=== PATIENT | male | born 1980 | race Caucasian/White ===

== ENCOUNTER 2017-02-24 18:24 | Emergency (ER) | payer MEDICAID ==
[2017-02-24 18:32] VITALS: BP 124/78
--- NOTE | 2017-02-24 19:16 | XRAY Preliminary Report ---
Exam: XR Clavicle RT IMPRESSION: 1. Comminuted, displaced distal right clavicle fracture. [facility] SITE ID: [id number]
--- NOTE | 2017-02-24 19:17 | XRAY Preliminary Report ---
Exam: XR Shoulder 3 View RT IMPRESSION: Comminuted, displaced distal clavicle fracture [facility] SITE ID: [id number]
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
--- NOTE | 2017-02-24 19:20 | XRAY Report ---
EXAM: RIGHT SHOULDER RADIOGRAPHY EXAM DATE: 02/24/2017 07:02 PM. CLINICAL HISTORY: Right shoulder injury. COMPARISON: None. TECHNIQUE: 3 views. FINDINGS: Bones: There is a comminuted fracture involving the distal third of the clavicle with elevation of th e proximal fracture fragment up to 15 mm. No other fracture seen. Joints: The glenohumeral and acromioclavicular joints are normal. Soft tissues: The visualized hemithorax is unremarkable. No soft tissue swelling. IMPRESSION: Comminuted, displaced distal clavicle fracture [facility] Referring Provider Line: [phone] SITE ID: [id number]
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
[2017-02-24] MEDS ORDERED: HYDROcod/ACET 5/325 Prepack 6 PO ONE ×2 (19:41→19:57)
[2017-02-24] MEDS ORDERED: ACETAMINOPHEN 325 MG TABLET PO STA (19:41)
[2017-02-24] MEDS ORDERED: IBUPROFEN 600 MG TABLET PO STA (19:41)
[2017-02-24] MEDS ORDERED: IBUPROFEN 600 MG TABLET PO ONE (19:57)
[2017-02-24] MEDS ORDERED: ACETAMINOPHEN 325 MG TABLET PO ONE (19:57)
== END 2017-02-24 20:15 | disposition home or self-care (01) ==
LOC: ED 18:24
DX: S42.031A Displaced fracture of lateral end of right clavicle, initial encounter for closed fracture (principal); V18.4XXA Pedal cycle driver injured in noncollision transport accident in traffic accident, initial encounter; Y93.55 Activity, bike riding; Y92.488 Other paved roadways as the place of occurrence of the external cause; F17.200 Nicotine dependence, unspecified, uncomplicated
CPT/HCPCS: 73000; 73030; 99282; 99283; A9270

== ENCOUNTER 2018-04-10 16:06 | Emergency (ER) | payer MEDICAID ==
--- NOTE | 2018-04-10 16:59 | ED Physician Documentation ---
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 Did not notice the symptoms until he arrived home at night) Similar symptoms before: Has not had sx before Recently seen: Not recently seen Review of Systems Constitutional: denies: Fever, Chills Eyes: denies: Decreased vision, Photophobia Skin: denies: Rash Musculoskeletal: denies: Neck pain, Back pain Neurologic: denies: Headache PD PAST MEDICAL HISTORY - Past Medical History Cardiovascular: None Respiratory: None Neuro: None Endocrine/Autoimmune: None GI: None : None HEENT: None Psych: None Musculoskeletal: None Derm: None - Past Surgical History Past Surgical History: Yes Ortho: Shoulder arthroplasty - Present Medications Home Medications: Ambulatory Orders Medication Instructions Recorded Confirmed Rabeprazole Sodium [Aciphex] 20 mg PO DAILY #20 tablet. 10/18/15 02/24/17 HYDROcod/ACETAM 5/325 [[place] 5/325] 1 tab PO Q6H PRN #15 tablet 02/24/17 Polymyxin B/Trimeth Ophth Drop 1 drops LEFTEYE Q3H 7 Days #1 04/10/18 [Polytrim Ophth Drops] bottle - Allergies Allergies/Adverse Reactions: Allergies Allergy/AdvReac Type Severity Reaction Status Date / Time No Known Drug Allergies Allergy Verified 04/10/18 16:30 - Social History Does the pt smoke?: Yes Smoking Status: Current every day smoker Does the pt drink ETOH?: Yes Does the pt have substance abuse?: No Substance Use and Type: Marijuana - Immunizations Immunizations are current?: Yes - POLST Patient has POLST: No PD ED PE NORMAL - Vitals Vital signs reviewed: Yes - General General: Alert and oriented X 3, No acute distress - HEENT HEENT: Other (Left eye has conjunctival injection, no fluorescein uptake. There is a small fragment of metal embedded in the cornea.) - Derm Derm: Warm and dry - Neuro Neuro: Alert and oriented X 3 Results - Vitals Vitals: Vital Signs - 24 hr 04/10/18 16:24 Temperature 36.2 C L Heart Rate 90 Respiratory 16 Rate Blood Pressure 135/95 H O2 Saturation 96 Oxygen O2 Source Room air PD MEDICAL DECISION MAKING - ED course Complexity details: considered differential, d/w patient ED course: Patient is a 37-year-old male with a left eye foreign body, metal embedded into the cornea. This was removed with an 18-gauge needle. Tolerated well. This wa s done under slit-lamp guidance. We will have him follow-up with ophthalmology for rust ring removal. Will start on Polytrim ophthalmic. Tetanus is up-to-date patient counseled regarding signs and symptoms for which I believe and urgent re-evaluation would be necessary. Patient with good understanding of and agreement to plan and is comfortable going home at this time This document was made in part using voice recognition software. While efforts are made to proofread this document, sound alike and grammatical errors may occur. Patient does not or contacts - Sepsis Event Vital Signs: Vital Signs - 24 hr 04/10/18 16:24 Temperature 36.2 C L Heart Rate 90 Respiratory 16 Rate Blood Pressure 135/95 H O2 Saturation 96 Oxygen O2 Source Room air Departure - Departure Disposition: 01 Home, Self Care Clinical Impression: Corneal foreign body with residual material Qualifiers: Encounter type: initial encounter Laterality: left Qualified Code(s): T15.02XA - Foreign body in cornea, left eye, initial encounter Condition: Good Instructions: ED Foreign Body Cornea W Rust Ring Follow-Up: Gavin Jeronimo MD [Provider Admit Priv/Credential] - Within 3 Days Prescriptions: Polymyxin B/Trimeth Ophth Drop [Polytrim Ophth Drops] 1 drops LEFTEYE Q3H 7 Days #1 bottle Comments: Use the eyedrops as prescribed. Make sure to follow-up with Dr. Jeronimo for further evaluation and removal of the rust ring. Discharge Date/Time: 04/10/18 17:25
[2018-04-10 17:20] VITALS: BP 132/79
== END 2018-04-10 17:25 | disposition home or self-care (01) ==
LOC: ED 16:06
DX: T15.02XA Foreign body in cornea, left eye, initial encounter (principal); X58.XXXA Exposure to other specified factors, initial encounter
CPT/HCPCS: 65222; 99283

== ENCOUNTER 2022-05-26 12:11 | Emergency (ER) | payer MEDICAID ==
[2022-05-26 12:52] VITALS: BP 150/86
--- NOTE | 2022-05-26 13:17 | XRAY Report ---
PROCEDURE: Chest 1 View X-Ray INDICATIONS: cough with SOA TECHNIQUE: One view of the chest was acquired. COMPARISON: None. FINDINGS: Surgical changes and devices: Plate/screw fixation of the right clavicle. Lungs and pleura: No consolidation or pleural effusion. Possible peribronchial cuffing. Mediastinum: Mediastinal contours appear normal. Heart size is normal. Bones and chest wall: Left rib deformity of the eighth rib most notably, probably nonacute. IMPRESSION: No pulmonary consolidation or pleural effusions. Possible peribronchial cuffing could be seen with br onchitis in the setting of cough. Left eighth rib deformity, possibly nonacute. Right clavicle plate/screw fixation hardware. Reviewed by: Jorgito Bacon MD on 05/26/2022 1:16 PM PST Approved by: Jorgito Bacon MD on 05/26/2022 1:16 PM PST Station ID: [id number]
--- NOTE | 2022-05-26 14:29 | ED Physician Documentation ---
PD HPI URI - Stated complaint Stated Complaint: COUGH - Chief complaint Chief Complaint: Resp - History obtained from History obtained from: Patient - History of Present Illness Timing - onset: How many months ago (5) Timing duration: Months (5) Timing details: Gradual onset Pain level max: 0 Pain level now: 0 Associated symptoms: Nasal congestion, Rhinorrhea, Productive cough, Dyspnea. No: Fever, Chest pain Contributing factors: Sick contact Improves by: Rest Worsened by: Activity, Breathing - Additional information Additional information: Patient is a 41-year-old male who presents to the emergency department with a cough for the past 5 months. He is a heavy daily smoker. He states his chest feels tight and has increasing coughing recently. Chills but no documented fevers. No vomiting. The cough is productive clear mucus. 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 Nothing makes it better or worse. Review of Systems Constitutional: denies: Fever GI: denies: Vomiting, Diarrhea Skin: denies: Rash Musculoskeletal: denies: Neck pain, Back pain Neurologic: denies: Headache PD PAST MEDICAL HISTORY - Past Medical History Cardiovascular: None Respiratory: None Neuro: None Endocrine/Autoimmune: None GI: None : None HEENT: None Psych: None Musculoskeletal: None Derm: None - Past Surgical History Past Surgical History: Yes Ortho: Shoulder arthroplasty - Present Medications Home Medications: Ambulatory Orders Medication Instructions Recorded Confirmed Rabeprazole Sodium [Aciphex] 20 mg PO DAILY #20 tablet. 10/18/15 02/24/17 HYDROcod/ACETAM 5/325 [[place] 5/325] 1 tab PO Q6H PRN #15 tablet 02/24/17 Polymyxin B/Trimeth Ophth Drop 1 drops LEFTEYE Q3H 7 Days #1 04/10/18 [Polytrim Ophth Drops] bottle Albuterol Sulf [Ventolin Hfa 1 - 2 puffs INH Q4HR PRN #1 each 05/26/22 Inhaler] Amox/Clav 875/125 [Augmentin] 1 tab PO Q12H #20 tablet 05/26/22 Doxycycline Monohydrate 100 mg PO BID #20 cap 05/26/22 - Allergies Allergies/Adverse Reactions: Allergies Allergy/AdvReac Type Severity Reaction Status Date / Time lactose Allergy Unknown Verified 05/26/22 12:52 - Social History Does the pt smoke?: Yes Smoking Status: Current every day smoker Does the pt drink ETOH?: Yes Does the pt have substance abuse?: No - Immunizations Immunizations are current?: Yes - POLST Patient has POLST: No PD ED PE NORMAL - Vitals Vital signs reviewed: Yes - General General: Alert and oriented X 3, No acute distress, Well developed/nourished - HEENT HEENT: PERRL, Moist mucous membranes - Neck Neck: Supple, no meningeal sign - Cardiac Cardiac: RRR, Strong equal pulses - Respiratory Respiratory: No respiratory distress, Other (mild wheezing B) - Abdomen Abdomen: Soft, Non tender, Non distended - Derm Derm: Warm and dry - Extremities Extremities: No edema, No calf tenderness / cord - Neuro Neuro: Alert and oriented X 3 - Psych Psych: Normal mood, Normal affect Results - Vitals Vitals: Vital Signs - 24 hr 05/26/22 12:48 Temperature 36.8 C Heart Rate 96 Respiratory 18 Rate Blood Pressure 150/86 H O2 Saturation 97 Oxygen O2 Source Room air - Rads (name of study) cxr Radiology: Final report received, EMP read contemporaneously, See rad report PD MEDICAL DECISION MAKING - ED course Complexity details: reviewed results, re-evaluated patient, considered differential, d/w patient ED course: Patient is a 41-year-old male with approximately 5 months of cough, heavy smoker. Possible chronic bronchitis, possible COPD. We will prescribe an inhaler. We will have him follow-up closely with his doctor for further care. We will place on antibiotics to see if this improves his symptoms as well given his heavy smoking history. Patient is well-appearing, nontoxic. Afebrile. No hypoxia. No respiratory distress. Patient counseled regarding signs and symptoms for which I believe and urgent re-evaluation would be necessary. Patient with good understanding of and agreement to plan and is comfortable going home at this time This document was made in part using voice recognition software. While efforts are made to proofread this document, sound alike and grammatical errors may occur. Departure - Departure Disposition: 01 Home, Self Care Clinical Impression: CAP (community acquired pneumonia) Qualifiers: Laterality: unspecified laterality Qualified Code(s): J18.9 - Pneumonia, unspecified organism Condition: Good Instructions: ED Bronchitis Asthmatic Follow-Up: your,doctor in 1 week if not better [Other] Prescriptions: Albuterol Sulf [Ventolin Hfa Inhaler] 1 - 2 puffs INH Q4HR PRN #1 each PRN Reason: Shortness Of Air/Wheezing Amox/Clav 875/125 [Augmentin] 1 tab PO Q12H #20 tablet Doxycycline Monohydrate 100 mg PO BID #20 cap Comments: Your prescriptions were sent to [facility] in [place]. Please follow-up with your doctor as needed for further care. Return if you worsen. Take all antibiotics until gone. Forms: Activity restrictions Discharge Date/Time: 05/26/22 14:47
== END 2022-05-26 14:47 | disposition home or self-care (01) ==
LOC: ED 12:11
DX: J18.9 Pneumonia, unspecified organism (principal); F17.200 Nicotine dependence, unspecified, uncomplicated
CPT/HCPCS: 99283; 99284

== ENCOUNTER 2022-09-03 08:49 | Emergency (ER) | payer MEDICAID ==
[2022-09-03 09:00] VITALS: BP 155/90
--- NOTE | 2022-09-03 09:53 | ED Physician Documentation ---
PD HPI UPPER EXT INJURY - Stated complaint Stated Complaint: SWOLLEN FINGER - Chief complaint Chief Complaint: Wound - History obtained from History obtained from: Patient - Additonal information Additional information: Patient is a 42-year-old male presenting for evaluation of redness and swelling to his left middle finger that he noticed today. 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 He feels as if he removed the whole sliver of fish that was in his finger.His tetanus is up-to-date. He denies other medical issues or concerns. Review of Systems Constitutional: denies: Fever Cardiac: denies: Chest pain / pressure Respiratory: denies: Dyspnea GI: denies: Abdominal Pain : denies: Dysuria Skin: reports: Rash Musculoskeletal: reports: Extremity swelling Neurologic: denies: Headache PD PAST MEDICAL HISTORY - Past Medical History Past Medical History: No Cardiovascular: None Respiratory: None Neuro: None Endocrine/Autoimmune: None GI: None : None HEENT: None Psych: None Musculoskeletal: None Derm: None - Past Surgical History Past Surgical History: Yes Ortho: Shoulder arthroplasty - Present Medications Home Medications: Ambulatory Orders Medication Instructions Recorded Confirmed Sulfamethox/Trimeth 800/160 1 each PO BID #14 tablet 09/03/22 [Bactrim Ds 800/160] cephALEXin [Keflex] 500 mg PO Q6H #28 cap 09/03/22 - Allergies Allergies/Adverse Reactions: Allergies Allergy/AdvReac Type Severity Reaction Status Date / Time lactose Allergy Unknown Verified 09/03/22 09:00 - Social History Does the pt smoke?: Yes Smoking Status: Current every day smoker Does the pt drink ETOH?: Yes Does the pt have substance abuse?: Yes Substance Use and Type: Marijuana - Immunizations Immunizations are current?: Yes - POLST Patient has POLST: No PD ED PE NORMAL - General General: Alert and oriented X 3, No acute distress, Well developed/nourished - HEENT HEENT: Atraumatic - Neck Neck: Supple, no meningeal sign - Cardiac Cardiac: Strong equal pulses - Respiratory Respiratory: No respiratory distress - Extremities Extremities: Other (Faint erythema and mild swelling to left middle digit, normal range of motion, no tenderness over tendon sheath; Small superficial abscess that was opened and small amount of pus was drained) PD ED PE EXPANDED - Extremities LÓPEZ UE/Hands Visual: 1 - abscess (superficial abscess) Results - Vitals Vitals: Vital Signs - 24 hr 09/03/22 08:58 Temperature 36.8 C Heart Rate 89 Respiratory 16 Rate Blood Pressure 155/90 H O2 Saturation 97 Oxygen O2 Source Room air - Labs Labs: Microbiology 09/03/22 10:00 Wound Culture - Preliminary Finger - Left Middle Procedures - Abscess I&D (location) L middle finger Preparation: Alcohol Incision: Needle aspiration, Purulent drainage Other: Pt tolerated well, Antibiotic prescribed PD Medical Decision Making - ED course ED course: Patient with swelling and redness to his left middle finger after recently having a piece of vinyl fish in it. He had an open wound at that has since become infected. There is a small superficial abscess which I opened and obtained a wound culture from. There is surrounding redness and swelling concerning for cellulitis. He has normal range of motion and no other symptoms to suggest flexor tenosynovitis or deep space infection of the digit. I did obtain an x-ray to evaluate for a radioopaque foreign body Which was negative. I will start him on antibiotics and have counseled on concerning symptoms to return for. Departure - Departure Disposition: 01 Home, Self Care Clinical Impression: Superficial injury of left middle finger with infection Condition: Stable Instructions: ED Infec Skin Cellulitis Prescriptions: Sulfamethox/Trimeth 800/160 [Bactrim Ds 800/160] 1 each PO BID #14 tablet cephALEXin [Keflex] 500 mg PO Q6H #28 cap Comments: You have an infection to your left middle fingerWhich likely started from a wound caused by a piece of fish that went into your finger. I did review an x-ray and did not see a foreign body. However not all foreign bodies are seen on x-rays. There was a small abscess so I did open up the abscess with a needle and expressed the pus out. We did also send the pus for a culture. I will start you on 2 antibiotics. I have sent these prescriptions to [facility]. Please keep the wound clean and dry. Please return to the emergency department with any worsening symptoms such as increased redness, swelling or pain. Discharge Date/Time: 09/03/22 10:14
[2022-09-03] MEDS ORDERED: cephALEXin 250 MG CAPSULE PO STA (10:07)
[2022-09-03] MEDS ORDERED: SULFAMETH/TRIMETH DS 800/160 MG TABLET PO STA (10:07)
--- NOTE | 2022-09-03 10:25 | XRAY Report ---
PROCEDURE: Finger(s) LT INDICATIONS: r/o FB TECHNIQUE: AP hand, 3 views of the third finger(s) acquired. COMPARISON: None FINDINGS: Bones: No fractures or dislocations. No suspicious bony lesions. Soft tissues: No suspicious soft tissue calcifications. Dorsal soft tissue swelling IMPRESSION: Soft tissue swelling without fracture or foreign Reviewed by: Calvin Arevalo MD on 09/03/2022 9:23 AM [facility] Approved by: Calvin Arevalo MD on 09/03/2022 9:23 AM [facility] Station ID: [id number]
== END 2022-09-03 10:14 | disposition home or self-care (01) ==
LOC: ED 08:49
DX: L02.512 Cutaneous abscess of left hand (principal); F17.200 Nicotine dependence, unspecified, uncomplicated
CPT/HCPCS: 10160; 73140; 87070; 87205; 99284; A9270